=== PATIENT | female | born 1975 | race African-American/Black ===

== ENCOUNTER 2019-05-02 13:44 | Emergency (ER) | payer OTHER ==
[~2019-05-02] VITALS: Ht 167.6 cm; Wt 68.5 kg
[2019-05-02 14:17] VITALS: BP 116/72
[2019-05-02] MEDS ORDERED: IRON150C5 PO (14:17)
[2019-05-02] MEDS ORDERED: PHEN100C4 PO (14:17)
[2019-05-02] MEDS ORDERED: predniSONE 20 MG TABLET PO ONE (15:30)
[2019-05-02] MEDS ORDERED: KETOROLAC TROMETHAMINE INJ 60 MG/2 ML VIAL IM ONE (15:30)
[2019-05-02] MEDS ORDERED: HYDROCODONE/APAP 5/325MG 1 EACH TABLET PO ONE (15:30)
[2019-05-02] MEDS ORDERED: HYDROCODONE/APAP 5/325MG 1 EACH TABLET ONE (15:41)
[2019-05-02] MEDS ORDERED: predniSONE 20 MG TABLET ONE (15:41)
== END 2019-05-02 18:45 | disposition home or self-care (01) ==
LOC: ER 13:48
DX: M54.10 Radiculopathy, site unspecified (principal); G89.29 Other chronic pain; M67.431 Ganglion, right wrist; G40.909 Epilepsy, unspecified, not intractable, without status epilepticus; F17.200 Nicotine dependence, unspecified, uncomplicated; Z79.899 Other long term (current) drug therapy
CPT/HCPCS: 29125; 99283; 99406; J7512

== ENCOUNTER 2025-02-15 15:45 | Inpatient (IN) | payer MEDICAID, OTHER ==
[~2025-02-15] VITALS: Ht 167.6 cm; Wt 89.4 kg
[~2025-02-15 15:45] MED LIST: IRON150C5 PO; PHEN100C4 PO
[2025-02-15] MEDS ORDERED: KETOROLAC TROMETHAMINE 15 MG/ML VIAL ONE (16:20)
[2025-02-15] MEDS: IV NS 0.9% 1,000 ML BAG IV ONE (16:30)
[2025-02-15] MEDS: LEVETIRACETAM (500MG) 1,500 MG in IV NS 0.9% 85 ML IV SCH (16:45)
[2025-02-15] MEDS: KETOROLAC TROMETHAMINE 15 MG/ML VIAL IV ONE (16:47)
[2025-02-15 16:49] LABS: PLATELET COUNT (AUTO) 155 K/uL (150-450); RED BLOOD CELL COUNT(AUTO) 4.78 MIL/uL (4.0-5.2); RED CELL DISTRIBUTION WIDTH 23.6 % (11.5-15.0); WHITE BLOOD COUNT (AUTO) 17.8 K/uL (4.3-11.0)
[2025-02-15 16:58] LABS: CALCIUM, SERUM 9.1 mg/dL (8.5-10.1); CREATININE 0.9 mg/dL (0.6-1.3); SODIUM SERUM 133.0 mmol/L (136-145); UREA NITROGEN, BLOOD 10.0 mg/dL (7-18)
[2025-02-15] MEDS ORDERED: ASPIRIN 325 MG TABLET ONE (19:15)
[2025-02-15] MEDS: ASPIRIN 325 MG TABLET PO ONE (19:18)
[2025-02-15] MEDS ORDERED: ENOXAPARIN SODIUM 30 MG/0.3 ML DISP.SYRIN ONE (19:54)
[2025-02-15] MEDS ORDERED: ENOXAPARIN SODIUM 80 MG/0.8 ML DISP.SYRIN SQ ONE (19:55)
[2025-02-15] MEDS ORDERED: ACETAMINOPHEN 325 MG TABLET PO PRN (20:00)
[2025-02-15] MEDS ORDERED: MORPHINE SULFATE INJ 2 MG/ML DISP.SYRIN IV PRN (20:00)
[2025-02-15] MEDS ORDERED: ONDANSETRON HCL/PF 4 MG/2 ML VIAL IVP PRN (20:00)
[2025-02-15] MEDS ORDERED: TEMAZEPAM 15 MG CAPSULE PO PRN (20:00)
[2025-02-15] MEDS ORDERED: MAGNESIUM HYDROXIDE 30 ML UDC PO PRN (20:00)
[2025-02-15] MEDS ORDERED: MAG HYDROX/AL HYDROX/SIMETH 30 ML UDC PO PRN (20:00)
[2025-02-15] MEDS ORDERED: NITROGLYCERIN 0.4 MG/TAB BOTTLE SL PRN (20:00)
[2025-02-15] MEDS ORDERED: ENOXAPARIN SODIUM 80 MG/0.8 ML DISP.SYRIN SQ SCH (20:00)
[2025-02-15 20:10] VITALS: BP 149/90; TEMP 98.4; O2SAT 98
[2025-02-15] MEDS: ENOXAPARIN SODIUM 30 MG/0.3 ML DISP.SYRIN SQ ONE (20:14)
[2025-02-15 20:49] LABS: LACTIC ACID 3.5 mmol/L (0.4-2.0)
[2025-02-15] MEDS: METOPROLOL TARTRATE 25 MG TABLET PO SCH (21:02)
[2025-02-15] MEDS ORDERED: LEVETIRACETAM (500MG) 500 MG/5 ML VIAL IV ONE (21:34)
[2025-02-15 21:55] LABS: LACTIC ACID REFLEX 1.0 mmol/L (0.4-1.9)
[2025-02-15] MEDS: ATORVASTATIN 40 MG TABLET PO SCH (22:09)
[2025-02-15] MEDS ORDERED: LORAZEPAM INJ 2 MG/ML VIAL IV PRN (23:00)
[2025-02-16] VITALS (7 sets, daily range): BP systolic 112–133; BP diastolic 61–77; TEMP 97.9–99.1; O2SAT 93–97
[2025-02-16] MEDS: MORPHINE SULFATE INJ 4 MG/ML DISP.SYRIN IV PRN (00:58)
[2025-02-16 01:11] LABS: APPEARANCE,URINE CLEAR (CLEAR); BLOOD, URINE NEGATIVE Ery/uL (NEGATIVE); LEUKOCYTE ESTERASE ,URINE NEGATIVE (NEGATIVE); NITRITE, URINE NEGATIVE (NEGATIVE); UGLUCOSE NEGATIVE (NEGATIVE)
[2025-02-16 01:22] LABS: AMPHETAMINE, URINE NEGATIVE (NEGATIVE); BARBITURATE, URINE NEGATIVE (NEGATIVE); BENZODIAZEPINE, URINE NEGATIVE (NEGATIVE); COCCAINE, URINE NEGATIVE (NEGATIVE); OPIATE, URINE NEGATIVE (NEGATIVE)
[2025-02-16 01:23] LABS: CANNABINOID, URINE POSITIVE (NEGATIVE)
[2025-02-16] MEDS ORDERED: LEVE500T20 PO ×2 (08:15)
[2025-02-16] MEDS: FERROUS SULFATE (325 MG) 325 MG/TAB TABLET PO SCH (08:21)
[2025-02-16] MEDS: ASPIRIN 81 MG TAB.CHEW PO SCH (08:21)
[2025-02-16] MEDS: LEVETIRACETAM (250 MG) 250 MG TABLET PO SCH (08:22)
[2025-02-16] MEDS: ENOXAPARIN SODIUM 80 MG/0.8 ML DISP.SYRIN SQ SCH (08:27)
[2025-02-16] MEDS: PANTOPRAZOLE 40 MG TABLET.DR PO SCH (08:30)
[2025-02-16] MEDS ORDERED: ENOXAPARIN SODIUM 80 MG/0.8 ML DISP.SYRIN SQ SCH (09:00)
[2025-02-16] MEDS ORDERED: IOHEXOL-350 100 ML VIAL IV ONE (10:20)
[2025-02-16] MEDS ORDERED: IV NS 0.9% 250 ML IV ONE (10:21)
[2025-02-16] MEDS: METOPROLOL TARTRATE INJ 5 MG/5 ML AMPUL IVP PRN (10:50)
[2025-02-16] MEDS ORDERED: NITROGLYCERIN 0.4 MG/TAB BOTTLE ONE (11:00)
[2025-02-16] MEDS: NITROGLYCERIN 0.4 MG/TAB BOTTLE SL ONE (11:00)
[2025-02-16 13:10] LABS: INR 1.04 (0.91-1.10)
[2025-02-16 13:11] LABS: PLATELET COUNT (AUTO) 129 K/uL (150-450); RED BLOOD CELL COUNT(AUTO) 4.26 MIL/uL (4.0-5.2); RED CELL DISTRIBUTION WIDTH 23.5 % (11.5-15.0); WHITE BLOOD COUNT (AUTO) 15.1 K/uL (4.3-11.0)
[2025-02-16 13:12] LABS: CALCIUM, SERUM 8.6 mg/dL (8.5-10.1); CREATININE 0.9 mg/dL (0.6-1.3); PHOSPHORUS 3.3 mg/dL (2.5-4.9); SODIUM SERUM 136.0 mmol/L (136-145); UREA NITROGEN, BLOOD 9.0 mg/dL (7-18)
[2025-02-16 13:15] LABS: IRON, SERUM 139.0 ug/dl (50-175)
[2025-02-16 13:32] LABS: LDL 73.0 mg/dL (0-99)
[2025-02-16] MEDS: METOPROLOL TARTRATE 50 MG TABLET PO SCH (14:14)
[2025-02-16 14:29] LABS: EOSINOPHILS % (MANUAL) 2 % (0-4); LYMPHOCYTES % (MANUAL) 35 % (16-48); MONOCYTES % (MANUAL) 2 % (0-11.0); NEUTROPHILS % (MANUAL) 61 (42-76); PLATELET ESTIMATE DECREASED
[2025-02-17] VITALS (7 sets, daily range): BP systolic 133–152; BP diastolic 73–80; TEMP 98.2–98.6; O2SAT 95
[2025-02-17] MEDS ORDERED: LEVE1000 PO (09:12)
[2025-02-17 10:38] LABS: PLATELET COUNT (AUTO) 128 K/uL (150-450); RED BLOOD CELL COUNT(AUTO) 4.74 MIL/uL (4.0-5.2); RED CELL DISTRIBUTION WIDTH 25.4 % (11.5-15.0); WHITE BLOOD COUNT (AUTO) 13.2 K/uL (4.3-11.0)
[2025-02-17 10:47] LABS: CALCIUM, SERUM 9.1 mg/dL (8.5-10.1); CREATININE 0.8 mg/dL (0.6-1.3); SODIUM SERUM 139.0 mmol/L (136-145); UREA NITROGEN, BLOOD 11.0 mg/dL (7-18)
== END 2025-02-17 11:11 | disposition home or self-care (01) | DRG 53 ==
LOC: ER 15:48 → TELE 19:43 → MED 02-17 09:56
PROVIDERS: ADMIT Registered Nurse Psychiatric/Mental Health; ATTEND Internal Medicine
PROC: 30233N1 Transfusion of Nonautologous Red Blood Cells into Peripheral Vein, Percutaneous Approach (ICD-10-PCS; principal; 2025-02-16)
DX: G40.909 Epilepsy, unspecified, not intractable, without status epilepticus (principal); E87.20 Acidosis, unspecified; I21.A1 Myocardial infarction type 2; D50.9 Iron deficiency anemia, unspecified; E87.1 Hypo-osmolality and hyponatremia; F17.210 Nicotine dependence, cigarettes, uncomplicated; Z79.899 Other long term (current) drug therapy; M19.90 Unspecified osteoarthritis, unspecified site; D72.829 Elevated white blood cell count, unspecified; R73.9 Hyperglycemia, unspecified; Z71.6 Tobacco abuse counseling
CPT/HCPCS: 36415; 71045-TC; 73030-TC; 75574; 80048-TC; 80061-TC; 82247-TC; 82248-TC; 82728-TC; 83540-TC; 83605-TC; 83735-TC; 84100-TC; 84484-TC; 85025-TC; 85027-TC; 85610-TC; 86850-TC; 87081-TC; 93307-TC; G0378; J1650; J1885; J1953; J2270; J3490; J7030; J7040; J7050; P9016; Q9967